=== PATIENT | male | born 1980 | race Two or more races ===

== ENCOUNTER → 2019-07-26 | Outpatient (CLI) | payer OTHER ==
--- NOTE | 2019-07-26 11:59 | CARD ---
MR#: [id number] Date of Study: 07/26/2019 Ordering Physician: EMMA WORLEY, Referring Physician: EMMA WORLEY, Tech: Nora Gomez [facility] APPROVED REPORT EXAM: Two-dimensional and M-mode echocardiogram with Doppler and color Doppler. Other Information Quality : Good INDICATION Palpitations 2D DIMENSIONS RVDd2.8 (2.9-3.5cm)Left Atrium(2D)3.5 (1.6-4.0cm) IVSd1.1 (0.7-1.1cm)Aortic Root(2D)2.9 (2.0-3.7cm) LVDd4.9 (3.9-5.9cm)LVOT Diameter2.2 (1.8-2.4cm) PWd1.1 (0.7-1.1cm)LVDs3.2 (2.5-4.0cm) FS (%) 34.0 %SV71.8 ml LVEF(%)60.0 (>50%) Aortic Valve AoV Peak Timur.137.8cm/sAoV VTI24.8cm AO Peak GR.7.6mmHgLVOT Peak Timur.116.3cm/s AO Mean GR.4mmHgAVA (VMAX)3.28cm2 AMNA (VTI)3.40cm2 Mitral Valve MV E Wmgsthmw04.7cm/sMV DECEL [id number] MV A Uvszcdzl60.1cm/sE/A Ratio1.3 Tricuspid Valve TR P. Ljinuqgb412yo/sRAP [id number] TR Peak Gr.89nmEyCOPQ07plHe Pulmonary Vein S1 Vxbktlja89.8cm/sD2 Bjwsxexy75.6cm/s LEFT VENTRICLE The left ventricle is normal size. There is normal left ventricular wall thickness. The left ventricu lar systolic function is normal. The Ejection Fraction is 55-60%. There is normal LV segmental wall m otion. The left ventricular diastolic function and filling is normal for age. RIGHT VENTRICLE The right ventricle is normal size. The right ventricular systolic function is normal. ATRIA The left atrium size is normal. The right atrium size is normal. The interatrial septum is intact wit h no evidence for an atrial septal defect or patent foramen ovale as noted on 2-D or Doppler imaging. AORTIC VALVE The aortic valve is calcified but opens well. Doppler and Color Flow revealed no significant aortic r egurgitation. There is no significant aortic valvular stenosis. MITRAL VALVE The mitral valve is normal in structure and function. There is no evidence of mitral valve prolapse. There is no mitral valve stenosis. Doppler and Color-flow revealed trace mitral regurgitation. TRICUSPID VALVE The tricuspid valve is normal in structure and function. Doppler and Color Flow revealed trace tricus pid regurgitation. The PA pressure was estimated at 28 mmHg. There is no tricuspid valve stenosis. PULMONIC VALVE The pulmonary valve is normal in structure and function. Doppler and Color Flow revealed trace to mil d pulmonic valvular regurgitation. There is no pulmonic valvular stenosis. GREAT VESSELS The aortic root is normal in size. The ascending aorta is normal in size. The IVC is normal in size a nd collapses >50% with inspiration. PERICARDIAL EFFUSION There is no evidence of significant pericardial effusion. Critical Notification Critical Value: No <Conclusion> The left ventricular systolic function is normal. The Ejection Fraction is 55-60%. There is normal LV segmental wall motion. Trace mitral regurgitation. Trace tricuspid regurgitation. The PA pressure was estimated at 28 mmHg. There is no evidence of significant pericardial effusion. Signed by : Huy Hoffmann, Electronically Approved : 07/26/2019 11:59:16
== END | disposition home or self-care (01) ==
LOC: ECHO 10:51
PROVIDERS: ATTEND Internal Medicine Cardiovascular Disease
DX: I08.8 Other rheumatic multiple valve diseases (principal)
CPT/HCPCS: 93306